=== PATIENT | male | born 1945 | race Caucasian/White ===

== ENCOUNTER 2017-07-03 11:07 | Observation (INO) | payer SELFPAY ==
[2017-07-03] MEDS ORDERED: Sodium Chloride 0.9% 1,000 ML IV STA (12:00)
--- NOTE | 2017-07-03 12:14 | ED PDOC ---
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 Had similar episode 20 days ago, did not seek medical attention at that time. Denies fever, SPENCE, paresthesias, weakness, CP, SOB, nausea, vomiting, abdominal pain, palpitations. Past Medical History Reviewed: Nursing Documentation, Vital Signs Vital Signs: Last Vital Signs Temp 98.4 F 07/03/17 11:25 Pulse 80 07/03/17 11:35 Resp 16 07/03/17 11:35 BP 120/65 07/03/17 11:35 Pulse Ox 100 07/03/17 11:25 - Medical History PMH: No Chronic Diseases - Surgical History Surgical History: No Surg Hx - Family History Family History: States: Unknown Family Hx - Living Arrangements Living Arrangements: With Family - Social History Current smoker - smoking cessation education provided: Yes Alcohol: None - Allergies Allergies/Adverse Reactions: Allergies Allergy/AdvReac Type Severity Reaction Status Date / Time No Known Allergies Allergy Verified 07/03/17 11:29 Review of Systems Constitutional: Positive for: Chills, Sweats, Weakness (Generalized), Malaise, Weight loss (Past 2 years). Negative for: Fever Eyes: Negative for: Vision Change Cardiovascular: Negative for: Chest Pain, Palpitations Respiratory: Negative for: Cough, Shortness of Breath Gastrointestinal: Negative for: Nausea, Vomiting, Abdominal Pain, Diarrhea Genitourinary Male: Negative for: Dysuria, Hematuria Neurological: Positive for: Dizziness (Lightheadedness). Negative for: Numbness , Incoordination, Change in Speech, Confusion, Seizures, Altered Mental Status, Headache Physical Exam - Reviewed Nursing Documentation Reviewed: Yes Vital Signs Reviewed: Yes - Physical Exam Appears: Positive for: Well, No Acute Distress (Thin) Head Exam: Positive for: ATRAUMATIC, NORMAL INSPECTION Skin: Positive for: Normal Color, Warm, Dry Eye Exam: Positive for: Normal appearance, EOMI, PERRL, Scleral icterus (?) Neck: Positive for: Normal, Painless ROM, Supple Cardiovascular/Chest: Positive for: Regular Rate, Rhythm Respiratory: Positive for: Normal Breath Sounds. Negative for: Rales, Rhonchi, Wheezing Gastrointestinal/Abdominal: Positive for: Normal Exam, Bowel Sounds, Soft. Negative for: Tenderness Extremity: Positive for: Normal ROM Neurologic/Psych: Positive for: Alert, immigration specialist II-XII, Oriented. Negative for: Motor/Sensory Deficits, Aphasia, Facial Droop - Laboratory Results Result Diagrams: 07/04/17 06:00 07/04/17 06:00 - ECG O2 Sat by Pulse Oximetry: 100 Medical Decision Making Medical Decision Makin yo male with near syncope. - labs - EKG - CXR - CT head - orthostatics - IVF Accession No. : [id number] Patient Name / ID : BLAINE DELAROSA / [id number] Exam Date : 07/03/2017 12:09:33 ( Approved ) Study Comment : Sex / Age : M / 72Y Creator : Primitivo Melton MD Dictator : Primitiov Melton MD Supervisor Wet Pour : Sheeting Puller : Primitivo Melton MD Approver2 : Report Date : 07/03/2017 12:25:06 My Comment : PROCEDURE: CT HEAD WITHOUT CONTRAST. HISTORY: Near syncope COMPARISON: None available. TECHNIQUE: Axial computed tomography images were obtained through the head/brain without intravenous contrast. Radiation dose: Total exam DLP = 841.51 mGy-cm. This CT exam was performed using one or more of the following dose reduction techniques: Automated exposure control, adjustment of the mA and/or kV according to patient size, and/or use of iterative reconstruction technique. FINDINGS: HEMORRHAGE: No intracranial hemorrhage. BRAIN: Minimal diffuse cerebral atrophy is appreciated. A a small dilated perivascular space is favored over chronic lacune at the inferior left basal ganglia. Remaining cerebral densities unremarkable with good corticomedullary differentiation is preserved. Posterior fossa contents are unremarkable including the brainstem. VENTRICLES: Unremarkable. No hydrocephalus. CALVARIUM: No fracture or destructive bony lesions appreciated. Extensive atherosclerotic plaque seen at the cavernous bilateral internal carotid artery segments. PARANASAL SINUSES: Unremarkable as visualized. No significant inflammatory changes. MASTOID AIR CELLS: Unremarkable as visualized. No inflammatory changes. OTHER FINDINGS: None. IMPRESSION: Minimal age related neuro degenerative changes appreciated without intracranial hemorrhage, mass effect or cortical edema. Follow-up CT or MRI are available as clinically warranted. Accession No. : [id number] Patient Name / ID : BLAINE DELAROSA / [id number] Exam Date : 07/03/2017 12:47:37 ( Approved ) Study Comment : Sex / Age : M / 72Y Creator : Primitivo Melton MD Dictator : Primitivo Melton MD Supervisor Wet Pour : Sheeting Puller : Primitivo Melton MD Approver2 : Report Date : 07/03/2017 17:33:48 My Comment : HISTORY: Near syncope COMPARISON: Subsequent chest CT 07/03/2017. FINDINGS: LUNGS: Patchy density in the right base medially has been demonstrated to represent probable chronic atelectasis over medial basilar right lower lobe subsegmental component rather than acute infiltrate. Remaining lung siddiqui appear clear. Calcified granuloma left base. PLEURA: No significant pleural effusion identified, no pneumothorax apparent. CARDIOVASCULAR: Normal. OSSEOUS STRUCTURES: No significant abnormalities. VISUALIZED UPPER ABDOMEN: Normal. OTHER FINDINGS: None. IMPRESSION: Patchy density medial right base better defined on subsequent chest CT 2017 likely representing chronic atelectasis or fibrosis. Please see separate report. Accession No. : [id number] Patient Name / ID : BLAINE DELAROSA / [id number] Exam Date : 07/03/2017 14:02:34 ( Approved ) Study Comment : Sex / Age : M / 72Y Creator : Primitivo Melton MD Dictator : Primitivo Melton MD Supervisor Wet Pour : Sheeting Puller : Primitivo Melton MD Approver2 : Report Date : 07/03/2017 15:31:13 My Comment : PROCEDURE: CT Chest with contrast (Pulmonary Angiogram) HISTORY: Near syncope COMPARISON: None available. TECHNIQUE: Axial computed tomography images were obtained of the chest in the pulmonary arterial phase of enhancement. Coronal and sagittal reformatted images were created and reviewed. Intravenous contrast dose: Visipaque 320, 100 cc. Radiation dose: Total exam DLP = 212.29 mGy-cm. This CT exam was performed using one or more of the following dose reduction techniques: Automated exposure control, adjustment of the mA and/or kV according to patient size, and/or use of iterative reconstruction technique. FINDINGS: PULMONARY ARTERIES: Unremarkable. No pulmonary embolism. AORTA: Normal caliber throughout the thorax. LUNGS: Subtle emphysematous changes seen at the bilateral apices appears spared the bases. A few calcified granulomata are seen in the bilateral lung bases with nonspecific but likely chronic atelectasis or fibrosis of a limited fibrosis seen in the right middle lobe as well with a central airways clear. The right lower lobe medial basilar subsegment. A 2.5 mm noncalcified subpleural nodule seen the right apex image 25 series 5. PLEURAL SPACES: Limited pleural thickening is questioned at the right base. No pneumothorax or definite pleural effusion bilaterally. HEART: Unremarkable. No cardiomegaly. No significant pericardial effusion. LYMPH NODES: No lymphadenopathy. BONES, CHEST WALL: Unremarkable. No fracture or destructive lesion OTHER FINDINGS: Unremarkable. IMPRESSION: No pulmonary embolus. Subtle biapical emphysematous changes with likely chronic fibrotic changes at the medial right base with limited chronic atelectasis at a medial right basilar subsegment. The right basilar pleural thickening may also be chronic. No distant prior comparison available. No definite acute infiltrate. 2.5 mm noncalcified nodule right apex for which follow-up low-dose chest CT is recommended in 12 months. Lung rads 2. Accession No. : [id number] Patient Name / ID : BLAINE DELAROSA / [id number] Exam Date : 07/03/2017 14:38:15 ( Approved ) Study Comment : Sex / Age : M / 72Y Creator : Primitivo Melton MD Dictator : Primitivo Melton MD Supervisor Wet Pour : Sheeting Puller : Primitivo Melton MD Approver2 : Report Date : 07/03/2017 15:40:48 My Comment : PROCEDURE: CT Abdomen and Pelvis with contrast HISTORY: Near syncope, ? abdominal mass COMPARISON: None. TECHNIQUE: Helical CT of the abdomen pelvis was performed without oral contrast administered as requested. No intravenous contrast was administered for this exam however it was performed following a separate contrast-enhanced CT angiogram of the chest performed immediately prior to this study. Referring physician added this exam sometime following CT angiogram of the chest order. Radiation dose: Total exam DLP = 212.42 mGy-cm. This CT exam was performed using one or more of the following dose reduction techniques: Automated exposure control, adjustment of the mA and/or kV according to patient size, and/or use of iterative reconstruction technique. FINDINGS: LOWER THORAX: Reiterates immediately preceding chest CT. Please see separate report also performed 07/03/2017. Imaging in the abdomen is compromised by late expiratory phase contrast- enhancement and the lack of oral contrast. LIVER: Unremarkable. No gross lesion or ductal dilatation. GALLBLADDER AND BILE DUCTS: Unremarkable. PANCREAS: Unremarkable. No gross lesion or ductal dilatation. SPLEEN: Unremarkable. ADRENALS: Unremarkable. No mass. KIDNEYS AND URETERS: Bilateral renal excretion is appreciated with no obstructive uropathy identified. No perinephric fluid collection or reaction apparent. Soft tissue unremarkable in this phase of contrast enhancement. VASCULATURE: Unremarkable. No aortic aneurysm. BOWEL: Unremarkable. No obstruction. No gross mural thickening. APPENDIX: Not identified. PERITONEUM: Unremarkable. No free fluid. No free air. LYMPH NODES: Unremarkable. No enlarged lymph nodes. BLADDER: Urinary bladder is incompletely distended with no nodule or focal mass appreciable. The wall thickness is poorly evaluated. REPRODUCTIVE: Enlarged prostate gland. BONES: No acute fracture. OTHER FINDINGS: None. IMPRESSION: Limited examination due lack of oral contrast and imaging during renal history phase of contrast enhancement as discussed above. No definite bowel or urinary tract obstruction, measure edema or ascites. No definitive acute findings. The study is a low sensitivity, low specificity study with the exception of apparent normal renal excretory function. Disposition - Clinical Impression Clinical Impression: Near syncope - Patient ED Disposition Is Patient to be Admitted: Yes - Disposition Disposition Time: 14:21 Condition: STABLE - Pt Status Changed To: Hospital Disposition Of: Observation - POA Present On Arrival: None
--- NOTE | 2017-07-03 12:27 | CT ---
PROCEDURE: CT HEAD WITHOUT CONTRAST. HISTORY: Near syncope COMPARISON: None available. TECHNIQUE: Axial computed tomography images were obtained through the head/brain without intravenous contrast. Radiation dose: Total exam DLP = 841.51 mGy-cm. This CT exam was performed using one or more of the following dose reduction techniques: Automated exposure control, adjustment of the mA and/or kV according to patient size, and/or use of iterative reconstruction technique. FINDINGS: HEMORRHAGE: No intracranial hemorrhage. BRAIN: Minimal diffuse cerebral atrophy is appreciated. A a small dilated perivascular space is favored over chronic lacune at the inferior left basal ganglia. Remaining cerebral densities unremarkable with good corticomedullary differentiation is preserved. Posterior fossa contents are unremarkable including the brainstem. VENTRICLES: Unremarkable. No hydrocephalus. CALVARIUM: No fracture or destructive bony lesions appreciated. Extensive atherosclerotic plaque seen at the cavernous bilateral internal carotid artery segments. PARANASAL SINUSES: Unremarkable as visualized. No significant inflammatory changes. MASTOID AIR CELLS: Unremarkable as visualized. No inflammatory changes. OTHER FINDINGS: None. IMPRESSION: Minimal age related neuro degenerative changes appreciated without intracranial hemorrhage, mass effect or cortical edema. Follow-up CT or MRI are available as clinically warranted.
[2017-07-03 12:54] LABS: BASO % 0.6 % (0.0-2.0); EOS # 0.1 K/uL (0.0-0.7); EOS % 1.2 % (0.0-4.0); HEMOGLOBIN 9.3 g/dL (12.0-18.0); LYMPH # 0.7 K/uL (1.0-4.3); LYMPH % 10.8 % (20.0-40.0); MEAN CELL VOLUME 77.5 fl (80.0-94.0); MEAN CORPUSCULAR HEMOGLOBIN 25.3 pg (27.0-31.0); MEAN CORPUSCULAR HGB CONC 32.6 g/dL (33.0-37.0); MEAN PLATELET VOLUME 7.3 fl (7.2-11.7); MONO # 0.3 K/uL (0.0-0.8); NEUT # 5.6 K/uL (1.8-7.0); NEUT % 82.4 % (50.0-75.0); RBC 3.67 Mil/uL (4.40-5.90); RED CELL DISTRIBUTION WIDTH 15.8 % (11.5-14.5); WHITE BLOOD COUNT 6.8 K/uL (4.8-10.8)
[2017-07-03 13:10] LABS: ALB/GLOB RATIO 0.8 (1.0-2.1)
[2017-07-03 13:12] LABS: ALBUMIN 3.3 g/dL (3.5-5.0); ALT/SGPT 29 U/L (21-72); AST/SGOT 31 U/L (17-59); BLOOD UREA NITROGEN 14 mg/dl (9-20); CALCIUM 8.9 mg/dL (8.4-10.2); GFR AFRICAN-AMERICAN > 60; GFR NON-AFRICAN AMERICAN > 60; INR 1.3 (0.9-1.2); PROTHROMBIN TIME 14.2 Seconds (9.8-13.1)
[2017-07-03 13:13] LABS: PARTIAL THROMBOPLASTIN TIME 33.7 Seconds (25.6-37.1)
[2017-07-03 13:29] LABS: SQUAMOUS EPITHIAL < 1 /hpf (0-5); URINE AMORPHOUS SEDIMENT RARE /ul (<OCC); URINE BILIRUBIN NEGATIVE (NEGATIVE); URINE BLOOD SMALL (NEGATIVE); URINE CLARITY CLOUDY (Clear); URINE COLOR AMBER (YELLOW); URINE GLUCOSE (UA) NEG (Normal); URINE HYALINE CAST >20 /hpf (0-2); URINE LEUKOCYTE ESTERASE NEG Leu/uL (Negative); URINE NITRATE NEGATIVE (NEGATIVE); URINE PROTEIN 100 mg/dL (NEGATIVE); URINE UROBILINOGEN 0.2-1.0 mg/dL (0.2-1.0)
[2017-07-03] MEDS ORDERED: Sodium Chloride 0.9% 100 ML ONE (14:00)
[2017-07-03] MEDS ORDERED: Iodixanol 320 MG/ML 100 ML BOTTLE IV ONE (14:00)
--- NOTE | 2017-07-03 14:49 | CP.PCM.HP ---
History of Present Illness - History of Present Illness History of Present Illness: cc: felt lightheaded HPI: 72 year old male no past medical history presents to the ED today from his place of work ([employer]) after a brief episode of moderate lightheadedness , dizziness, mild diaphoresis, not lasting a long period of time, unable to quantify, not associated with any symptoms, improved with rest. In ED patient is mildly anemic 9.3/28.4, no evidence of active bleeding, denies hematemesis, melena, hematochezia. CTA neg for PE, CT abd neg. Anemia workup, monitor overnight, trend cardiac enzymes, no acute findings on EKG. Observe patient overnight for near syncope. ROS: per HPI all other systems reviewd and neg PMSH: denies FH: denies SH: denies tobacco, ETOH, IVDU NKDA Present on Admission - Present on Admission Any Indicators Present on Admission: No Past Patient History - Infectious Disease Hx of Infectious Diseases: None - Past Social History Alcohol: None - PSYCHIATRIC Hx Substance Use: No - SURGICAL HISTORY Hx Surgeries: No - ANESTHESIA Hx Anesthesia: No Meds Allergies/Adverse Reactions: Allergies Allergy/AdvReac Type Severity Reaction Status Date / Time No Known Allergies Allergy Verified 07/03/17 11:29 Physical Exam - Constitutional Appears: Non-toxic, No Acute Distress, Cachectic - Head Exam Head Exam: ATRAUMATIC, NORMOCEPHALIC - Eye Exam Eye Exam: EOMI, Normal appearance, PERRL - ENT Exam ENT Exam: Mucous Membranes Moist, Normal Oropharynx - Respiratory Exam Respiratory Exam: Clear to Auscultation Bilateral, NORMAL BREATHING PATTERN - Cardiovascular Exam Cardiovascular Exam: RRR, +S1, +S2 - GI/Abdominal Exam GI & Abdominal Exam: Normal Bowel Sounds, Soft. absent: Mass, Tenderness - Extremities Exam Extremities exam: Positive for: normal capillary refill, pedal pulses present - Back Exam Back exam: absent: CVA tenderness (L), CVA tenderness (R) - Neurological Exam Neurological exam: Alert, Oriented x3 - Psychiatric Exam Psychiatric exam: Normal Affect, Normal Mood - Skin Skin Exam: Dry, Warm Results - Vital Signs Recent Vital Signs: Last Vital Signs Temp 98 F 07/03/17 12:51 Pulse 78 07/03/17 12:51 Resp 18 07/03/17 12:51 BP 115/68 07/03/17 12:51 Pulse Ox 100 07/03/17 12:51 - Labs Result Diagrams: 07/03/17 12:47 07/03/17 12:47 Labs: Laboratory Results - last 24 hr 07/03/17 07/03/17 07/03/17 11:28 12:47 12:47 WBC 6.8 RBC 3.67 L Hgb 9.3 L Hct 28.4 L MCV 77.5 L MCH 25.3 L MCHC 32.6 L RDW 15.8 H Plt Count 338 MPV 7.3 Neut % (Auto) 82.4 H Lymph % (Auto) 10.8 L [place] % (Auto) 5.0 Eos % (Auto) 1.2 Baso % (Auto) 0.6 Neut # (Auto) 5.6 Lymph # (Auto) 0.7 L [place] # (Auto) 0.3 Eos # (Auto) 0.1 Baso # (Auto) 0.0 PT INR APTT D-Dimer, Quantitative Sodium 134 Potassium 4.3 Chloride 97 L Carbon Dioxide 26 Anion Gap 15 BUN 14 Creatinine 0.7 L Est GFR ( Amer) > 60 Est GFR (Non-Af Amer) > 60 POC Glucose (mg/dL) 152 H Random Glucose 141 H Calcium 8.9 Total Bilirubin 0.4 AST 31 ALT 29 Alkaline Phosphatase 113 Troponin I < 0.0120 Total Protein 7.4 Albumin 3.3 L Globulin 4.1 H Albumin/Globulin Ratio 0.8 L Urine Color Urine Clarity Urine pH Ur Specific [place] Urine Protein Urine Glucose (UA) Urine Ketones Urine Blood Urine Nitrate Urine Bilirubin Urine Urobilinogen Ur Leukocyte Esterase Urine RBC (Auto) Urine Microscopic WBC Ur Squamous Epith Cells Amorphous Sediment Hyaline Casts Influenza Typ A,B (EIA) 07/03/17 07/03/17 07/03/17 12:47 12:47 13:16 WBC RBC Hgb Hct MCV MCH MCHC RDW Plt Count MPV Neut % (Auto) Lymph % (Auto) [place] % (Auto) Eos % (Auto) Baso % (Auto) Neut # (Auto) Lymph # (Auto) [place] # (Auto) Eos # (Auto) Baso # (Auto) PT 14.2 H INR 1.3 H APTT 33.7 D-Dimer, Quantitative 352 H Sodium Potassium Chloride Carbon Dioxide Anion Gap BUN Creatinine Est GFR ( Amer) Est GFR (Non-Af Amer) POC Glucose (mg/dL) Random Glucose Calcium Total Bilirubin AST ALT Alkaline Phosphatase Troponin I Total Protein Albumin Globulin Albumin/Globulin Ratio Urine Color Fabi Urine Clarity Cloudy Urine pH 6.0 Ur Specific [place] 1.021 Urine Protein 100 Urine Glucose (UA) Neg Urine Ketones Trace Urine Blood Small Urine Nitrate Negative Urine Bilirubin Negative Urine Urobilinogen 0.2-1.0 Ur Leukocyte Esterase Neg Urine RBC (Auto) 12 H Urine Microscopic WBC 6 H Ur Squamous Epith Cells < 1 Amorphous Sediment Rare H Hyaline Casts >20 H Influenza Typ A,B (EIA) Negative for flu a/b Assessment & Plan - Assessment and Plan (Free Text) Plan: 72 year old male no past medical history presents to the ED today from his place of work ([employer]) after a brief episode of moderate lightheadedness , dizziness, mild diaphoresis, not lasting a long period of time, unable to quantify, not associated with any symptoms, improved with rest. In ED patient is mildly anemic 9.3/28.4, no evidence of active bleeding, denies hematemesis, melena, hematochezia. CTA neg for PE, CT abd neg. Anemia workup, monitor overnight, trend cardiac enzymes, no acute findings on EKG. Observe patient overnight for near syncope. Near Syncope Anemia - Obs patient overnight for any additional episodes, monitor on telemetry - trend enzymes, EKG neg for arrhythmias or acute findings, TSH, monitor labs - anemia workup pending as well - carotid duplex pending - orthostatic BP patient ambulates to bathroom, SCDs
--- NOTE | 2017-07-03 15:32 | CT ---
PROCEDURE: CT Chest with contrast (Pulmonary Angiogram) HISTORY: Near syncope COMPARISON: None available. TECHNIQUE: Axial computed tomography images were obtained of the chest in the pulmonary arterial phase of enhancement. Coronal and sagittal reformatted images were created and reviewed. Intravenous contrast dose: Visipaque 320, 100 cc. Radiation dose: Total exam DLP = 212.29 mGy-cm. This CT exam was performed using one or more of the following dose reduction techniques: Automated exposure control, adjustment of the mA and/or kV according to patient size, and/or use of iterative reconstruction technique. FINDINGS: PULMONARY ARTERIES: Unremarkable. No pulmonary embolism. AORTA: Normal caliber throughout the thorax. LUNGS: Subtle emphysematous changes seen at the bilateral apices appears spared the bases. A few calcified granulomata are seen in the bilateral lung bases with nonspecific but likely chronic atelectasis or fibrosis of a limited fibrosis seen in the right middle lobe as well with a central airways clear. The right lower lobe medial basilar subsegment. A 2.5 mm noncalcified subpleural nodule seen the right apex image 25 series 5. PLEURAL SPACES: Limited pleural thickening is questioned at the right base. No pneumothorax or definite pleural effusion bilaterally. HEART: Unremarkable. No cardiomegaly. No significant pericardial effusion. LYMPH NODES: No lymphadenopathy. BONES, CHEST WALL: Unremarkable. No fracture or destructive lesion OTHER FINDINGS: Unremarkable. IMPRESSION: No pulmonary embolus. Subtle biapical emphysematous changes with likely chronic fibrotic changes at the medial right base with limited chronic atelectasis at a medial right basilar subsegment. The right basilar pleural thickening may also be chronic. No distant prior comparison available. No definite acute infiltrate. 2.5 mm noncalcified nodule right apex for which follow-up low-dose chest CT is recommended in 12 months. Lung rads 2.
--- NOTE | 2017-07-03 15:42 | CT ---
PROCEDURE: CT Abdomen and Pelvis with contrast HISTORY: Near syncope, ? abdominal mass COMPARISON: None. TECHNIQUE: Helical CT of the abdomen pelvis was performed without oral contrast administered as requested. No intravenous contrast was administered for this exam however it was performed following a separate contrast-enhanced CT angiogram of the chest performed immediately prior to this study. Referring physician added this exam sometime following CT angiogram of the chest order. Radiation dose: Total exam DLP = 212.42 mGy-cm. This CT exam was performed using one or more of the following dose reduction techniques: Automated exposure control, adjustment of the mA and/or kV according to patient size, and/or use of iterative reconstruction technique. FINDINGS: LOWER THORAX: Reiterates immediately preceding chest CT. Please see separate report also performed 07/03/2017. Imaging in the abdomen is compromised by late expiratory phase contrast-enhancement and the lack of oral contrast. LIVER: Unremarkable. No gross lesion or ductal dilatation. GALLBLADDER AND BILE DUCTS: Unremarkable. PANCREAS: Unremarkable. No gross lesion or ductal dilatation. SPLEEN: Unremarkable. ADRENALS: Unremarkable. No mass. KIDNEYS AND URETERS: Bilateral renal excretion is appreciated with no obstructive uropathy identified. No perinephric fluid collection or reaction apparent. Soft tissue unremarkable in this phase of contrast enhancement. VASCULATURE: Unremarkable. No aortic aneurysm. BOWEL: Unremarkable. No obstruction. No gross mural thickening. APPENDIX: Not identified. PERITONEUM: Unremarkable. No free fluid. No free air. LYMPH NODES: Unremarkable. No enlarged lymph nodes. BLADDER: Urinary bladder is incompletely distended with no nodule or focal mass appreciable. The wall thickness is poorly evaluated. REPRODUCTIVE: Enlarged prostate gland. BONES: No acute fracture. OTHER FINDINGS: None. IMPRESSION: Limited examination due lack of oral contrast and imaging during renal history phase of contrast enhancement as discussed above. No definite bowel or urinary tract obstruction, measure edema or ascites. No definitive acute findings. The study is a low sensitivity, low specificity study with the exception of apparent normal renal excretory function.
--- NOTE | 2017-07-03 17:35 | RAD ---
HISTORY: Near syncope COMPARISON: Subsequent chest CT 07/03/2017. FINDINGS: LUNGS: Patchy density in the right base medially has been demonstrated to represent probable chronic atelectasis over medial basilar right lower lobe subsegmental component rather than acute infiltrate. Remaining lung siddiqui appear clear. Calcified granuloma left base. PLEURA: No significant pleural effusion identified, no pneumothorax apparent. CARDIOVASCULAR: Normal. OSSEOUS STRUCTURES: No significant abnormalities. VISUALIZED UPPER ABDOMEN: Normal. OTHER FINDINGS: None. IMPRESSION: Patchy density medial right base better defined on subsequent chest CT 07/03/2017 likely representing chronic atelectasis or fibrosis. Please see separate report.
[2017-07-03 18:54] LABS: IRON 26 ug/dL (49-181)
[2017-07-03 19:04] LABS: % IRON SATURATION 10 % (20-55); TOTAL IRON BINDING CAPACITY 257 ug/dL (250-450)
[2017-07-03 19:15] VITALS: RESP 18
[2017-07-04 06:51] LABS: HEMOGLOBIN 9.4 g/dL (12.0-18.0); MEAN CELL VOLUME 77.4 fl (80.0-94.0); MEAN CORPUSCULAR HEMOGLOBIN 24.8 pg (27.0-31.0); MEAN CORPUSCULAR HGB CONC 32.1 g/dL (33.0-37.0); RBC 3.8 Mil/uL (4.40-5.90); RED CELL DISTRIBUTION WIDTH 16.3 % (11.5-14.5); WHITE BLOOD COUNT 5.8 K/uL (4.8-10.8)
[2017-07-04 07:29] LABS: BLOOD UREA NITROGEN 11 mg/dl (9-20); CALCIUM 8.7 mg/dL (8.4-10.2); GFR AFRICAN-AMERICAN > 60; GFR NON-AFRICAN AMERICAN > 60
[2017-07-04 08:33] VITALS: BP 133/71; PULSE 76; TEMP 98.3
[2017-07-04 09:37] VITALS: O2SAT 100
--- NOTE | 2017-07-04 11:44 | CP.PCM.DIS ---
Provider - Provider Date of Admission: 07/03/17 14:21 Attending physician: Lindsay Lowry DO Time Spent in preparation of Discharge (in minutes): 30 Diagnosis - Discharge Diagnosis (1) Iron deficiency anemia Status: Acute Hospital Course - Lab Results Lab Results: Most Recent Lab Values WBC 5.8 K/uL (4.8-10.8) 07/04/17 06:00 RBC 3.80 Mil/uL (4.40-5.90) L 07/04/17 06:00 Hgb 9.4 g/dL (12.0-18.0) L 07/04/17 06:00 Hct 29.4 % (35.0-51.0) L 07/04/17 06:00 MCV 77.4 fl (80.0-94.0) L 07/04/17 06:00 MCH 24.8 pg (27.0-31.0) L 07/04/17 06:00 MCHC 32.1 g/dL (33.0-37.0) L 07/04/17 06:00 RDW 16.3 % (11.5-14.5) H 07/04/17 06:00 Plt Count 317 K/uL (130-400) 07/04/17 06:00 MPV 7.3 fl (7.2-11.7) 07/03/17 12:47 Neut % (Auto) 82.4 % (50.0-75.0) H 07/03/17 12:47 Lymph % (Auto) 10.8 % (20.0-40.0) L 07/03/17 12:47 Pinal % (Auto) 5.0 % (0.0-10.0) 07/03/17 12:47 Eos % (Auto) 1.2 % (0.0-4.0) 07/03/17 12:47 Baso % (Auto) 0.6 % (0.0-2.0) 07/03/17 12:47 Neut # (Auto) 5.6 K/uL (1.8-7.0) 07/03/17 12:47 Lymph # (Auto) 0.7 K/uL (1.0-4.3) L 07/03/17 12:47 Pinal # (Auto) 0.3 K/uL (0.0-0.8) 07/03/17 12:47 Eos # (Auto) 0.1 K/uL (0.0-0.7) 07/03/17 12:47 Baso # (Auto) 0.0 K/uL (0.0-0.2) 07/03/17 12:47 Retic Count 1.4 % (0.5-1.5) 07/03/17 18:20 PT 14.2 Seconds (9.8-13.1) H 07/03/17 12:47 INR 1.3 (0.9-1.2) H 07/03/17 12:47 APTT 33.7 Seconds (25.6-37.1) 07/03/17 12:47 D-Dimer, Quantitative 352 ng/mlDDU (0-230) H 07/03/17 12:47 Sodium 134 mmol/l (132-148) 07/04/17 06:00 Potassium 4.2 MMOL/L (3.6-5.0) 07/04/17 06:00 Chloride 98 mmol/L (98-107) 07/04/17 06:00 Carbon Dioxide 27 mmol/L (22-30) 07/04/17 06:00 Anion Gap 13 (10-20) 07/04/17 06:00 BUN 11 mg/dl (9-20) 07/04/17 06:00 Creatinine 0.7 mg/dl (0.8-1.5) L 07/04/17 06:00 Est GFR ( Amer) > 60 07/04/17 06:00 Est GFR (Non-Af Amer) > 60 07/04/17 06:00 POC Glucose (mg/dL) 152 mg/dL (65-110) H 07/03/17 11:28 Random Glucose 95 mg/dL (75-110) 07/04/17 06:00 Calcium 8.7 mg/dL (8.4-10.2) 07/04/17 06:00 Iron 26 ug/dL (49-181) L 07/03/17 18:20 TIBC 257 ug/dL (250-450) 07/03/17 18:20 % Saturation 10 % (20-55) L 07/03/17 18:20 Ferritin 222.0 ng/Ml (17.9-464) 07/03/17 18:20 Total Bilirubin 0.4 mg/dl (0.2-1.3) 07/03/17 12:47 AST 31 U/L (17-59) 07/03/17 12:47 ALT 29 U/L (21-72) 07/03/17 12:47 Alkaline Phosphatase 113 U/L (38-126) 07/03/17 12:47 Troponin I < 0.0120 ng/mL (0.00-0.120) 07/04/17 10:30 Total Protein 7.4 G/DL (6.3-8.2) 07/03/17 12:47 Albumin 3.3 g/dL (3.5-5.0) L 07/03/17 12:47 Globulin 4.1 gm/dL (2.2-3.9) H 07/03/17 12:47 Albumin/Globulin Ratio 0.8 (1.0-2.1) L 07/03/17 12:47 TSH 3rd Generation 1.73 mIU/ML (0.46-4.68) 07/04/17 06:00 Urine Color Fabi (YELLOW) 07/03/17 13:16 Urine Clarity Cloudy (Clear) 07/03/17 13:16 Urine pH 6.0 (5.0-8.0) 07/03/17 13:16 Ur Specific Merrill 1.021 (1.003-1.030) 07/03/17 13:16 Urine Protein 100 mg/dL (NEGATIVE) 07/03/17 13:16 Urine Glucose (UA) Neg mg/dL (Normal) 07/03/17 13:16 Urine Ketones Trace mg/dL (NEGATIVE) 07/03/17 13:16 Urine Blood Small (NEGATIVE) 07/03/17 13:16 Urine Nitrate Negative (NEGATIVE) 07/03/17 13:16 Urine Bilirubin Negative (NEGATIVE) 07/03/17 13:16 Urine Urobilinogen 0.2-1.0 mg/dL (0.2-1.0) 07/03/17 13:16 Ur Leukocyte Esterase Neg Nino/uL (Negative) 07/03/17 13:16 Urine RBC (Auto) 12 /hpf (0-3) H 07/03/17 13:16 Urine Microscopic WBC 6 /hpf (0-5) H 02/24/18 13:16 Ur Squamous Epith Cells < 1 /hpf (0-5) 07/03/17 13:16 Amorphous Sediment Rare /ul (<OCC) H 07/03/17 13:16 Hyaline Casts >20 /hpf (0-2) H 07/03/17 13:16 Influenza Typ A,B (EIA) Negative for flu a/b (NEGATIVE) 07/03/17 12:47 - Hospital Course Hospital Course: 72 year old male no past medical history presents to the ED today from his place of work ([employer]) after a brief episode of moderate lightheadedness , dizziness, mild diaphoresis, not lasting a long period of time, unable to quantify, not associated with any symptoms, improved with rest. In ED patient is mildly anemic 9.3/28.4, no evidence of active bleeding, denies hematemesis, melena, hematochezia. CTA neg for PE, CT abd neg. Anemia workup, monitor overnight, trend cardiac enzymes, no acute findings on EKG. Observe patient overnight for near syncope. Near Syncope Anemia - stable to be discharge home, follow up PCP or [facility] for follow up outpatient carotid ultrasound - enzymes were negative, EKG neg for arrhythmias or acute findings, TSH normal - anemia workup + iron deficiency anemia start PO IRON and stool softeners. - carotid duplex completed. Discharge Exam - Head Exam Head Exam: ATRAUMATIC, NORMAL INSPECTION - Eye Exam Eye Exam: EOMI, Normal appearance Pupil Exam: NORMAL ACCOMODATION, PERRL - ENT Exam ENT Exam: Mucous Membranes Dry, Mucous Membranes Moist, Normal External Ear Exam - Neck Exam Neck exam: Full Rom, Normal Inspection - Respiratory Exam Respiratory Exam: Clear to PA & Lateral, NORMAL BREATHING PATTERN - Cardiovascular Exam Cardiovascular Exam: REGULAR RHYTHM, +S1, +S2 - GI/Abdominal Exam GI & Abdominal Exam: Normal Bowel Sounds, Unremarkable. absent: Organomegaly - Extremities Exam Extremities exam: normal capillary refill, pedal pulses present - Neurological Exam Neurological exam: Alert, Normal Gait, Oriented x3 - Psychiatric Exam Psychiatric exam: Normal Affect, Normal Mood - Skin Skin Exam: Dry, Warm Discharge Plan - Follow Up Plan Condition: STABLE Disposition: HOME/ ROUTINE Additional Instructions: Follow up with Primary care physician in ONE week for follow up of carotid doppler study. If none, please follow up with the [facility]. Referral provided. Referrals: [facility] [Provider Group]
--- NOTE | 2017-07-04 13:06 | US ---
PROCEDURE: Duplex ultrasound of the carotid and vertebral arteries. HISTORY: near syncope COMPARISON: None available. TECHNIQUE: Grayscale and duplex Doppler evaluation of the cervical carotid and vertebral arteries were performed. The common carotid, carotid bifurcations and cervical ICA and proximal ECA were evaluated. The vertebral arteries were evaluated for gross patency and direction. FINDINGS: RIGHT CAROTID ARTERIES: Common Carotid Artery: Patent without significant stenosis Maximal flow velocity of 110.3 cm/s. Carotid Bifurcation: Patent with trace plaque noted. Internal Carotid Artery:Normal. Maximal flow velocity of 101.6 cm/s. External Carotid Artery (proximal branches): Widely patent Maximal flow velocity of 140 cm/s. ICA/CCA Ratio: 0.9 LEFT CAROTID ARTERIES: Common Carotid Artery: Normal. Maximal flow velocity of 111.3 cm/s. Carotid Bifurcation: Mild atherosclerotic plaques identified extending in to proximal left ICA Internal Carotid Artery:Normal. Maximal flow velocity of 108 cm/s. External Carotid Artery (proximal branches): Normal. Maximal flow velocity of 157 cm/s. ICA/CCA Ratio: VERTEBRAL ARTERIES: Right Vertebral Artery: Patent. Antegrade flow. Left Vertebral Artery: Patent. Antegrade flow. OTHER FINDINGS: None. IMPRESSION: Bilateral carotid bulbar atherosclerotic plaques identified greater at the left and right sides without significant ICA stenosis bilaterally. No CCA stenosis bilaterally.
--- NOTE | 2017-07-04 14:55 | CARD ---
APPROVED REPORT EKG Measurement Heart [id number] <Conclusion> Normal sinus rhythm Normal ECG
[2017-07-04] MEDS ORDERED: Docusate-Senna 50 mg-8.6 mg Tab PO SCH (22:00)
== END 2017-07-04 16:05 | disposition home or self-care (01) ==
LOC: H.ER 11:07 → H.ERHOLD 14:21 → H.TEL 16:59
PROVIDERS: ADMIT Student in an Organized Health Care Education/Training Program; ATTEND Student in an Organized Health Care Education/Training Program
DX: D50.9 Iron deficiency anemia, unspecified (principal); R55 Syncope and collapse; F17.200 Nicotine dependence, unspecified, uncomplicated; J98.11 Atelectasis
CPT/HCPCS: 36415; 70450; 71045; 71275; 74177; 80048; 80053; 81003; 82728; 82948; 83540; 83550; 84443; 84484; 85025; 85027; 85044; 85378; 85610; 85730; 87804; 93005; 93880; 99285; G0378; J7040; Q9967